=== PATIENT | male | born 1990 | race Caucasian/White ===

== ENCOUNTER 2016-11-04 08:32 | Emergency (ER) | payer OTHER ==
[2016-11-04 08:42] VITALS: BP 134/61; PULSE 68; TEMP 97.8; BMI 32.9
[2016-11-04] MEDS ORDERED: ALBUTEROL SO4 2.5/IPRATROPIUM 0.5 INH SOL 3 ML VIAL.NEB. NEB ONE ×2 (09:35→09:38)
[2016-11-04] MEDS ORDERED: predniSONE 20 MG TABLET (UD) PO ONE (09:35)
[2016-11-04] MEDS ORDERED: predniSONE 20 MG TABLET (UD) ONE (09:38)
--- NOTE | 2016-11-04 09:46 | PDOC ---
History of Present Illness - General Chief Complaint: Rash Stated Complaint: COLD, HEADACHES, DIZZINESS Time Seen by Provider: 11/04/16 09:20 History Source: Patient Exam Limitations: No Limitations - History of Present Illness Initial Comments: 11/04/16 09:38 26 yr male history of asthma c/o exposure to dust mites yesterday was cleaning his house. Pt has had congestion, sneezing, wheezing and a rash to his arms. No SOB, c/o scratchy throat. no fever or chill. Pt took singulair last night. Past History - Past Medical History Allergies/Adverse Reactions: Allergies Allergy/AdvReac Type Severity Reaction Status Date / Time zhang flavor Allergy Verified 11/04/16 08:42 hazelnut Allergy Verified 11/04/16 08:42 cats Allergy Uncoded 11/04/16 08:42 dust Allergy Uncoded 11/04/16 08:42 Home Medications: Ambulatory Orders Albuterol Sulfate Inhaler - [Ventolin HFA Inhaler -] 1 - 2 inh PO Q4H #1 inhaler 11/04/16 Cetirizine HCl [Zyrtec -] 10 mg PO DAILY #30 tablet 11/04/16 Montelukast Sodium [Singulair] 4 mg PO ASDIR 11/04/16 Phentermine HCl [Adipex-P] 37.5 mg PO ASDIR 11/04/16 Prednisone [Deltasone -] 20 mg PO DAILY #5 tablet 11/04/16 Asthma: Yes - Surgical History Appendectomy: Yes - Immunization History Immunization Up to Date: Yes - Psycho/Social/Smoking Cessation Hx Anxiety: No Suicidal Ideation: No Smoking Status: No Smoking History: Never smoked Have you smoked in the past 12 months: No Number of Cigarettes Smoked Daily: 1 Information on smoking cessation initiated: No Hx Alcohol Use: Yes (OCCASIONALLY) Drug/Substance Use Hx: No Substance Use Type: None Respiratory Specific PMHX - Complaint Specific PMHX Angina: No Bronchitis: No Pneumonia: No Pulmonary Embolus: No TB (Tuberculosis): No *Physical Exam - Vital Signs Last Vital Signs Temp Pulse Resp BP Pulse Ox 97.8 F 68 18 134/61 98 11/04/16 08:39 11/04/16 08:39 11/04/16 08:39 11/04/16 08:39 11/04/16 08:39 - Physical Exam General Appearance: Yes: Nourished, Appropriately Dressed HEENT: positive: EOMI, АНДРЕЙ, Normal ENT Inspection, TMs Normal, Pharyngeal Erythema, Nasal Congestion. negative: Scleral Icterus (L), Muffled/Hoarse voice , Tonsillar Exudate, Tonsillar Erythema Neck: positive: Supple. negative: Tender, Lymphadenopathy (R), Lymphadenopathy (L) Respiratory/Chest: positive: Lungs Clear, Wheezing (mild exp ) Cardiovascular: positive: Regular Rhythm, Regular Rate Gastrointestinal/Abdominal: positive: Normal Bowel Sounds, Soft Musculoskeletal: positive: Normal Inspection Extremity: positive: Normal Capillary Refill, Normal Inspection, Normal Range of Motion Integumentary: positive: Normal Color, Dry, Warm, Rash (bilateral upper extremities with fine maculopapular rash non erythematous) Neurologic: positive: Fully Oriented, Alert, Normal Mood/Affect, Normal Response , Motor Strength 5/5 Medical Decision Making - Medical Decision Making 11/04/16 09:49 cc: allergic reaction, asthma exacerbation will give duoneb predniosne follow up wtih PMD pt agrees with plan of care, pt is stable speaking clearly full sentences no distress vitals stable *DC/Admit/Observation/Transfer Diagnosis at time of Disposition: Asthma exacerbation Allergic reaction Qualifiers: Encounter type: initial encounter Qualified Code(s): T78.40XA - Allergy, unspecified, initial encounter - Prescriptions Prescriptions: Prednisone [Deltasone -] 20 mg PO DAILY #5 tablet Albuterol Sulfate Inhaler - [Ventolin HFA Inhaler -] 1 - 2 inh PO Q4H #1 inhaler Cetirizine HCl [Zyrtec -] 10 mg PO DAILY #30 tablet - Referrals Referrals: Malick Zaman MD [Primary Care Provider] - - Patient Instructions Additional Instructions: cool water to bathe take next dose or prednisone tomorrow morning continue taking singulair take zyrtec in the morning use your inhlaer as directed return to ER for any worsening symptoms follow with your doctor this week for follow up - Post Discharge Activity Work/School Note: Back to Work
== END 2016-11-04 10:31 | disposition home or self-care (01) ==
LOC: JERFT 08:32
PROC: 3E0F7GC Introduction of Other Therapeutic Substance into Respiratory Tract, Via Natural or Artificial Opening (ICD-10-PCS; principal; 2016-11-04)
DX: J45.901 Unspecified asthma with (acute) exacerbation (principal)
CPT/HCPCS: 99281-25

== ENCOUNTER 2017-01-30 00:58 | Emergency (ER) | payer OTHER ==
[2017-01-30 02:19] VITALS: BP 158/84; PULSE 63; TEMP 99.2; BMI 33.0
--- NOTE | 2017-01-30 03:48 | PDOC ---
History of Present Illness - General Chief Complaint: Nausea/Vomiting Stated Complaint: HEAD ACHES/FEVER Time Seen by Provider: 01/30/17 02:10 History Source: Patient Exam Limitations: No Limitations - History of Present Illness Initial Comments: 01/30/17 03:43 26yo Male patient presents to ED c/o h/a, dizziness, nausea, subjective fever, nasal congestion (yellow/greenish discharge) and "stomachache." Patient states symptoms began Saturday. He states he usually has these symptoms and they go away , but now symptoms getting worse. Patient report he ate this morning w/o nausea or vomiting. Denies any other complaints at this time. Timing/Duration: reports: week Severity: reports: moderate Episode Description: See HPI Possible Cause: Yes: occasional episodes Modifying Factors: worse with: activity, albuterol inhaler, albuterol nebulizer , antibiotics, coughing, lying down, oxygen, rest, other Associated Symptoms: reports: cough, dizziness, facial pain, lightheadedness, nasal congestion, sinus infection Aspirin Received prior to arrival: No: no aspirin today, unknown, 81 mg x 1, 81 mg x 2, 81 mg x 3, 81 mg x 4, 325 mg x 1, provided at home, provided by EMS, provided by ED ASA Contraindications(Core Measure): No: Allergy, Other, Active Blding w/i 24 hrs., Plavix, Receiving Warfarin Past History - Travel Traveled outside of the country in the last 30 days: No Close contact w/someone who was outside of country & ill: No - Past Medical History Allergies/Adverse Reactions: Allergies Allergy/AdvReac Type Severity Reaction Status Date / Time zhang flavor Allergy Verified 01/30/17 02:20 hazelnut Allergy Verified 01/30/17 02:20 cats Allergy Uncoded 01/30/17 02:20 dust Allergy Uncoded 01/30/17 02:20 Home Medications: Ambulatory Orders Amox-Tr/K Cl [Augmentin - 875Mg Tablet] 1 tab PO Q12H #20 tablet 01/30/17 Fluticasone Propionate [Flonase Allergy Relief] 1 spray NS DAILY #1 spray.susp MDD 1 spray each nare 01/30/17 Asthma: Yes - Surgical History Appendectomy: Yes - Immunization History Immunization Up to Date: Yes - Psycho/Social/Smoking Cessation Hx Anxiety: No Suicidal Ideation: No Smoking Status: No Smoking History: Never smoked Have you smoked in the past 12 months: No Number of Cigarettes Smoked Daily: 1 Information on smoking cessation initiated: No Hx Alcohol Use: No Drug/Substance Use Hx: No Substance Use Type: None Respiratory Specific PMHX - Complaint Specific PMHX Angina: No Bronchitis: No Pneumonia: No Pulmonary Embolus: No TB (Tuberculosis): No Review of Systems - Review of Systems Able to Perform ROS?: Yes Is the patient limited Panamanian proficient: No Constitutional: Yes: Chills, Fever (Subjective). No: Loss of Appetite, Malaise , Night Sweats, Weakness HEENTM: Yes: Nose Congestion. No: Nose Bleeding, Throat Pain, Throat Swelling, Mouth Pain, Difficulty Swallowing, Mouth Swelling Respiratory: No: Cough, Shortness of Breath, Stridor, Wheezing Cardiac (ROS): No: Chest Pain, Edema, Palpitations, Syncope, Chest Tightness ABD/GI: Yes: Nausea. No: Constipated, Diarrhea, Poor Appetite, Poor Fluid Intake, Vomiting, Abdominal cramping : No: Dysuria, Flank Pain, Hematuria Musculoskeletal: No: Back Pain Integumentary: No: Bruising, Erythema, Rash, Sweating Neurological: Yes: Headache, Dizziness. No: Seizure, Tremors, Weakness, Ataxia All Other Systems: Reviewed and Negative *Physical Exam - Vital Signs Last Vital Signs Temp Pulse Resp BP Pulse Ox 99.2 F 63 18 158/84 100 01/30/17 02:05 01/30/17 02:05 01/30/17 02:05 01/30/17 02:05 01/30/17 02:05 - Physical Exam General Appearance: Yes: Nourished, Appropriately Dressed, Mild Distress. No: Apparent Distress, Moderate Distress, Severe Distress HEENT: positive: EOMI, АНДРЕЙ, Normal Voice, Symmetrical, TMs Normal, Pharynx Normal, Nasal Congestion, Sinus Tenderness (Nasal turbinate swollen and inflammed. Bilateral partial obstruction of nasal cavities.). negative: Normal ENT Inspection, Pharyngeal Erythema, Tonsillar Exudate, Tonsillar Erythema, Rhinorrhea, TM Bulging, TM Dull, TM Erythema Neck: positive: Trachea midline, Normal Thyroid, Supple. negative: Lymphadenopathy (R), Lymphadenopathy (L) Respiratory/Chest: positive: Lungs Clear, Normal Breath Sounds. negative: Respiratory Distress, Accessory Muscle Use, Labored Respiration, Rapid RR, Stridor, Wheezing Cardiovascular: positive: Regular Rhythm, Regular Rate Gastrointestinal/Abdominal: positive: Normal Bowel Sounds, Soft. negative: Distended, Guarding, Rebound, Tenderness Musculoskeletal: positive: Normal Inspection. negative: CVA Tenderness Extremity: positive: Normal Capillary Refill, Normal Inspection, Normal Range of Motion. negative: Pedal Edema, Swelling, Calf Tenderness, Erythema, Inflammation Integumentary: positive: Normal Color, Dry, Warm. negative: Erythema, Hives, Swelling Neurologic: positive: steward/stewardess deck II-XII NML intact, Fully Oriented, Alert, Normal Mood/ Affect, Normal Response, Motor Strength 01/11 ED Treatment Course - RADIOLOGY Radiology Studies Ordered: Category Date Time Status SINUS CT W/O CONTRAST [CT] Stat CT Scan 01/30/17 02:20 Taken *DC/Admit/Observation/Transfer Diagnosis at time of Disposition: Sinusitis Qualifiers: Sinusitis location: unspecified location Chronicity: acute Recurrence: non- recurrent Qualified Code(s): J01.90 - Acute sinusitis, unspecified - Discharge Dispostion Disposition: HOME Condition at time of disposition: Unchanged/Unknown Admit: No - Prescriptions Prescriptions: Amox-Tr/K Cl [Augmentin - 875Mg Tablet] 1 tab PO Q12H #20 tablet Fluticasone Propionate [Flonase Allergy Relief] 1 spray NS DAILY #1 spray.susp MDD 1 spray each nare - Referrals Referrals: Nas Guerra MD [Staff Physician] - - Patient Instructions Printed Discharge Instructions: DI for Sinusitis Additional Instructions: FOLLOW UP WITH DR. GUERRA (EARS, NOSE & THROAT) FOR FURTHER EVALUATION. CALL TO SCHEDULE APPOINTMENT. TAKE MEDICATIONS PRESCRIBED. RETURN IF SYMPTOMS WORSEN OR ANY CONCERNS FOR FURTHER EVALUATION. PLEASE TAKE ANTIBIOTICS ON FULL STOMACH AUGMENTIN CAN CAUSE UPSET STOMACH AND DIARRHEA. DRINK PLENTY FLUIDS (WATER). Print Language: CHINESE - Post Discharge Activity Work/School Note: Back to Work
[2017-01-30] MEDS ORDERED: AMOX TR/POT CLAV 875MG/125MG TABLETS (FP) PO ONE (03:53)
[2017-01-30] MEDS ORDERED: PSEUDOEPHEDRINE HCL 60 MG TABLET PO ONE (03:54)
[2017-01-30] MEDS ORDERED: PSEUDOEPHEDRINE HCL 60 MG TABLET ONE (04:25)
[2017-01-30] MEDS ORDERED: AMOX TR/POT CLAV 875MG/125MG TABLETS (FP) ONE (04:25)
[2017-01-30] MEDS ORDERED: ACETAMINOPHEN 650 MG/20.3 ML ORAL SOLUTION (CUPS) PO ONE (04:40)
[2017-01-30] MEDS ORDERED: ACETAMINOPHEN 325 MG TABLET (FP) ONE (04:41)
--- NOTE | 2017-01-30 05:25 | PDOC ---
*Physical Exam - Vital Signs Last Vital Signs Temp Pulse Resp BP Pulse Ox 99.2 F 63 18 158/84 100 01/30/17 02:05 01/30/17 02:05 01/30/17 02:05 01/30/17 02:05 01/30/17 02:05 ED Treatment Course - Medications Given in the ED: ED Medications Discontinued Medications Generic Name Dose Route Start Last Admin Trade Name Bola PRN Reason Stop Dose Admin Acetaminophen 975 mg 01/30/17 04:40 01/30/17 04:41 Tylenol Oral Solution - PO 01/30/17 04:41 975 mg ONCE ONE Administration Amoxicillin/Clavulanate Potassium 1 tab 01/30/17 03:53 01/30/17 04:28 Augmentin - 875mg Tablet PO 01/30/17 03:54 1 tab ONCE ONE Administration Pseudoephedrine HCl 60 mg 01/30/17 03:54 01/30/17 04:28 Sudafed - PO 01/30/17 03:55 60 mg ONCE ONE Administration Medical Decision Making - Medical Decision Making 01/30/17 05:24 agree with care from FELIPE Ny *DC/Admit/Observation/Transfer Diagnosis at time of Disposition: Sinusitis Qualifiers: Sinusitis location: unspecified location Chronicity: acute Recurrence: non- recurrent Qualified Code(s): J01.90 - Acute sinusitis, unspecified - Discharge Dispostion Disposition: HOME Condition at time of disposition: Good - Prescriptions Prescriptions: Amox-Tr/K Cl [Augmentin - 875Mg Tablet] 1 tab PO Q12H #20 tablet Azelastine/Fluticasone [Dymista Nasal [place]] 1 spray NS BID #1 spray.pump Fluticasone Propionate [Flonase Allergy Relief] 1 spray NS DAILY #1 spray.susp MDD 1 spray each nare - Referrals Referrals: Nas Guerra MD [Staff Physician] - - Patient Instructions Printed Discharge Instructions: DI for Sinusitis Additional Instructions: FOLLOW UP WITH DR. GUERRA (EARS, NOSE & THROAT) FOR FURTHER EVALUATION. CALL TO SCHEDULE APPOINTMENT. TAKE MEDICATIONS PRESCRIBED. RETURN IF SYMPTOMS WORSEN OR ANY CONCERNS FOR FURTHER EVALUATION. PLEASE TAKE ANTIBIOTICS ON FULL STOMACH AUGMENTIN CAN CAUSE UPSET STOMACH AND DIARRHEA. DRINK PLENTY FLUIDS (WATER). Print Language: LATVIAN - Post Discharge Activity Work/School Note: Back to Work
== END 2017-01-30 05:15 | disposition home or self-care (01) ==
LOC: JER 00:58
DX: J01.90 Acute sinusitis, unspecified (principal)
CPT/HCPCS: 70486-TC; 99282-25

== ENCOUNTER 2017-08-31 16:10 | Emergency (ER) | payer OTHER ==
[2017-08-31 16:18] VITALS: BP 107/76; PULSE 82; TEMP 98; BMI 33.5
[2017-08-31] MEDS ORDERED: MECLIZINE HCL 25 MG TABLET (FP) PO ONE (17:05)
--- NOTE | 2017-08-31 17:05 | PDOC ---
History of Present Illness - General History Source: Patient, Old Records Exam Limitations: No Limitations - History of Present Illness Initial Comments: 08/31/17 17:30 The patient is a 27 year old male, with a significant past medical history of anxiety and asthma, who presents to the emergency department with intermittent lightheadedness for the past 10 days. The patient reports that the lightheadedness is associated with a change in position, such as sitting up or standing up quickly. He reports that episodes of lightheadedness last a couple of minutes before resolving spontaneously. The patient reports that he sometimes feels like he is going to pass out when these episodes occur. The patient also reports an intermittent headache for the past 10 days which he describes as throbbing, rating it an 8/10 in severity. The patient additionally reports some occasional bilateral arm numbness and intermittent nausea. The patient denies blurry vision, double vision or changes in vision. The patient denies palpitations, shortness of breath or chest pain. The patient denies vomiting, diarrhea or abdominal pain. Allergies: [place] Flavor, Hazelnut, Cats, Dust. Past Surgical History: Appendectomy. Social History: Non-smoker. Denies alcohol or drug use. <Nadia Amador - Last Filed: 08/31/17 19:29> <Matt Rodriguez - Last Filed: 08/31/17 20:02> - General Chief Complaint: Weakness Stated Complaint: FATIGUE, CHILLS, BODY ACHES,INTERMITTENT NUMBNESS Time Seen by Provider: 08/31/17 17:04 Past History <Nadia Amador - Last Filed: 08/31/17 19:29> - Past Medical History Asthma: Yes COPD: No Lung CA: Yes (anxiety) Other medical history: On Phentermine for WT loss - Surgical History Appendectomy: Yes - Immunization History Immunization Up to Date: Yes - Suicide/Smoking/Psychosocial Hx Smoking Status: No Smoking History: Never smoked Have you smoked in the past 12 months: No Number of Cigarettes Smoked Daily: 1 Information on smoking cessation initiated: Yes 'Breaking Loose' booklet given: 08/31/17 Hx Alcohol Use: Yes (occasional) Drug/Substance Use Hx: No Substance Use Type: None <Matt Rodriguez - Last Filed: 08/31/17 20:02> - Past Medical History Allergies/Adverse Reactions: Allergies Allergy/AdvReac Type Severity Reaction Status Date / Time beckford flavor Allergy Verified 08/31/17 16:18 hazelnut Allergy Verified 08/31/17 16:18 cats Allergy Uncoded 08/31/17 16:18 dust Allergy Uncoded 08/31/17 16:18 Home Medications: Ambulatory Orders Cetirizine HCl [Zyrtec -] 10 mg PO DAILY 08/31/17 Meclizine HCl 25 mg PO TID 5 Days #15 tablet 08/31/17 Montelukast Sodium [Singulair] 10 mg PO DAILY 08/31/17 Review of Systems - Review of Systems Able to Perform ROS?: Yes Comments:: 08/31/17 17:31 A complete review of 10 out of 10 review of systems is taken and is negative apart from what is previously mentioned below and in the HPI. <Nadia Amador - Last Filed: 08/31/17 19:29> *Physical Exam - Vital Signs Last Vital Signs Temp Pulse Resp BP Pulse Ox 98 F 82 18 107/76 100 08/31/17 16:15 08/31/17 16:15 08/31/17 16:15 08/31/17 16:15 08/31/17 16:15 - Physical Exam Comments: 08/31/17 17:34 Vitals: Triage Vital signs reviewed. General Appearance: No acute distress, well nourished, well developed. Head: Atraumatic, normocephalic. Eyes: Pupils equal reactive round, extraocular movement intact. Neck: Supple. No nuchal rigidity. Chest Wall: Nontender. Cardiac: Regular rate and rhythm. No murmurs, no rubs, no gallops. Lungs: Clear to auscultation bilaterally, good air movement bilaterally. Abdomen: Soft, nondistended, normal bowel sounds, nontender to palpation. Extremities: Full range of motion to all extremities, no cyanosis, clubbing, or edema. Skin: Warm and dry, no rashes or lesions, no petechiae. Neuro: Patient reports feeling lightheaded upon sitting up and standing. AOX3. Cranial Nerves 2-12 grossly intact. Strength intact to all extremities. Sensation intact to all extremities. Finger to nose intact bilaterally. Psych: Normal mood, normal affect. <Nadia Amador - Last Filed: 08/31/17 19:29> - Vital Signs Last Vital Signs Temp Pulse Resp BP Pulse Ox 98 F 82 18 107/76 100 08/31/17 16:15 08/31/17 16:15 08/31/17 16:15 08/31/17 16:15 08/31/17 16:15 <Matt Rodriguez - Last Filed: 08/31/17 20:02> Heart Score/ECG Review #1 ECG reviewed & interpreted by me at: 17:47 (EKG performed at 17:47 demonstrates rate of 64 bpm, normal sinus rhythm, normal axis. No T wave inversions, no ST elevations.) <Nadia Amador - Last Filed: 08/31/17 19:29> ED Treatment Course - LABORATORY CBC & Chemistry Diagram: 08/31/17 17:40 08/31/17 18:48 <Nadia Amador - Last Filed: 08/31/17 19:29> - LABORATORY CBC & Chemistry Diagram: 08/31/17 17:40 08/31/17 18:48 <Matt Rodriguez - Last Filed: 08/31/17 20:02> Medical Decision Making - Medical Decision Making 08/31/17 19:30 EXAM: CT/HEAD CT without contrast Reviewed By: Dr. Vy Parsons Report: There is no CT evidence of acute cortical territorial infarction, bleed , mass lesion, mass effect, hydrocephalus or abnormal extra axial collection. Mild bilateral ethmoid chronic sinusitis. No acute sinusitis or mastoiditis is identified. No acute skull fracture or calvarial lesion is noted. <Nadia Amador - Last Filed: 08/31/17 19:29> - Medical Decision Making 08/31/17 19:21 Well-appearing no apparent distress normal neurologic examination history examination consistent with positional lightheadedness status post IV fluids meclizine patient feels better labs within normal limits Discharge home with prescription for meclizine. He'll follow up with neurology this week. Findings, the need for follow-up and strict return instructions discussed with patient. <Matt Rodriguez - Last Filed: 08/31/17 20:02> *DC/Admit/Observation/Transfer - Attestations Scribe Attestion: 08/31/17 17:15 Documentation prepared by Nadia Amador, acting as medical dermatologist for Matt Rodriguez MD. <Nadia Amador - Last Filed: 08/31/17 19:29> - Discharge Dispostion Admit: No <Matt Rodriguez - Last Filed: 08/31/17 20:02> Diagnosis at time of Disposition: Lightheadedness - Prescriptions Prescriptions: Meclizine HCl 25 mg PO TID 5 Days #15 tablet - Referrals Referrals: Pepe Cartagena [Primary Care Provider] - Pancho Pradhan MD [Staff Physician] - - Patient Instructions Additional Instructions: Drink plenty fluids. Meclizine as prescribed. On Saturday if no improvement in symptoms follow-up with Dr. Pradhan neurology. Return to the ED for any severe worsening symptoms or for any concerns. - Post Discharge Activity Forms/Work/School Notes: Back to Work
[2017-08-31] MEDS ORDERED: SODIUM CHLORIDE 0.9% 1000 ML INFUS.BAG IV ONE (17:07)
[2017-08-31] MEDS ORDERED: MECLIZINE HCL 25 MG TABLET (FP) ONE (17:16)
[2017-08-31 17:47] LABS: BASO % 0.6 % (0-2.0); EOS # 0.4 # (0-4.5); EOS % 4.2 % (0-4.5); LYMPH # 1.9 (8-40); MCH 29.6 pg (25.7-33.7); MCHC 32.7 g/dl (32.0-35.9); MEAN CELL VOLUME 90.6 fl (80-96); MEAN PLT VOLUME 10.1 fl (7.5-11.1); MONO # 0.9 # (3.8-10.2); NEUT # 5.2 # (42.8-82.8); NEUT % 62.3 % (42.8-82.8); PLATELET COUNT 237 K/MM3 (134-434); RDW 13.8 % (11.9-15.9); WHITE BLOOD COUNT 8.4 K/mm3 (4.0-10.0)
[2017-08-31 19:17] LABS: ALBUMIN 3.5 g/dl (3.4-5.0); ANION GAP 8 (8-16); BILIRUBIN,TOTAL 0.9 mg/dL (0.2-1.0); CALCIUM 7.9 mg/dL (8.5-10.1); CO2 25 mmol/L (21-32); CREATININE 0.7 mg/dL (0.7-1.3); GLUCOSE,RANDOM 85 mg/dL (74-106); SGOT/AST 11 U/L (15-37); SGPT/ALT 28 U/L (12-78); TOT PROT 6.5 g/dl (6.4-8.2)
[2017-08-31 19:18] LABS: ALK PHOS 89 U/L (45-117)
--- NOTE | 2017-09-01 17:09 | EKG ---
Test Reason : Blood Pressure : / mmHG Vent. Rate : 064 BPM Atrial Rate : 064 BPM P-R Int : 128 ms QRS Dur : 088 ms QT Int : 414 ms P-R-T Axes : 027 040 026 degrees QTc Int : 427 ms NORMAL SINUS RHYTHM NORMAL ECG NO PREVIOUS ECGS AVAILABLE Confirmed by ABDELRAHMAN JIMENEZ MD ([id number]) on 09/01/2017 5:09:18 PM Referred By: Confirmed By:ABDELRAHMAN JIMENEZ MD
== END 2017-08-31 20:56 | disposition home or self-care (01) ==
LOC: JER 16:10
DX: R42 Dizziness and giddiness (principal)
CPT/HCPCS: 36415; 70450-TC; 80053; 85025; 93005; 93010; 99284-25

== ENCOUNTER 2017-11-06 06:01 | Emergency (ER) | payer OTHER ==
[2017-11-06 06:22] VITALS: BP 156/80; PULSE 90; TEMP 99.4; BMI 34.7
--- NOTE | 2017-11-06 07:28 | PDOC ---
History of Present Illness - General History Source: Patient Exam Limitations: No Limitations - History of Present Illness Initial Comments: 11/06/17 07:49 The patient is a 27 year old male with no significant past medical history who presents to the ED complaining of approximately 1 week of subjective fever, malaise, sore throat, and cough with chest congestion. He states he has been taking old Augmentin since 4 days ago. He now also complains of diffuse lower abdominal pain and diarrhea. No vomiting. States his sore throat became worse this morning, prompting him to come to the ED. <Mindy Nicole - Last Filed: 11/06/17 07:49> <Frank Mead - Last Filed: 11/06/17 08:14> - General Chief Complaint: Sore Throat Stated Complaint: SORE THROAT Time Seen by Provider: 11/06/17 07:26 Past History <Mindy Nicole - Last Filed: 11/06/17 07:49> - Past Medical History Asthma: Yes COPD: No Lung CA: Yes (anxiety) - Surgical History Appendectomy: Yes - Immunization History Immunization Up to Date: Yes - Suicide/Smoking/Psychosocial Hx Smoking Status: No Smoking History: Never smoked Have you smoked in the past 12 months: No Number of Cigarettes Smoked Daily: 1 Information on smoking cessation initiated: No 'Breaking Loose' booklet given: 08/31/17 Hx Alcohol Use: No Drug/Substance Use Hx: No Substance Use Type: None <Frank Mead - Last Filed: 11/06/17 08:14> - Past Medical History Allergies/Adverse Reactions: Allergies Allergy/AdvReac Type Severity Reaction Status Date / Time zhang flavor Allergy Verified 11/06/17 06:10 hazelnut Allergy Verified 11/06/17 06:10 cats Allergy Uncoded 11/06/17 06:10 dust Allergy Uncoded 11/06/17 06:10 Home Medications: Ambulatory Orders Cetirizine HCl [Zyrtec -] 10 mg PO DAILY 08/31/17 Meclizine HCl 25 mg PO TID 5 Days #15 tablet 08/31/17 Montelukast Sodium [Singulair] 10 mg PO DAILY 08/31/17 Review of Systems - Review of Systems Able to Perform ROS?: Yes Comments:: 11/06/17 07:52 CONSTITUTIONAL: +Subjective fever, malaise. EYES: No visual changes ENT: +Sore throat. No ear pain. CARDIOVASCULAR: No chest pain, no palpitations RESPIRATORY: +Chest congestion, cough. GI: +Diffuse lower abdominal pain, diarrhea. No vomiting. No constipation. GENITOURINARY: No dysuria, no frequency, no hematuria MUSCULOSKELETAL: No backpain, no joint pain. SKIN: No rash NEURO: No headache <Mindy Nicole - Last Filed: 11/06/17 07:49> *Physical Exam - Vital Signs Last Vital Signs Temp Pulse Resp BP Pulse Ox 99.4 F 90 20 156/80 98 11/06/17 06:10 11/06/17 06:10 11/06/17 06:10 11/06/17 06:10 11/06/17 06:10 - Physical Exam Comments: 11/06/17 07:54 CONSTITUTIONAL: Well-appearing; well-nourished; in no apparent distress HEAD: Normocephalic; atraumatic EYES: PERRL; EOM intact ENMT: External appears normal; mildly erythematous oropharynx NECK: Supple; non-tender; mildly enlarged anterior cervical lymphadenopathy CARD: Normal S1, S2; no murmurs, rubs, or gallops RESP: Normal chest excursion with respiration; breath sounds clear and equal bilaterally; no wheezes, rhonchi, or rales ABD: Soft, non-distended; non-tender; no palpable organomegaly, no palpable hernias EXT: Normal ROM in all four extremities; non-tender to palpation; distal pulses intact SKIN: Warm, dry, no rash NEURO: No focal neurological deficiencies. <Mindy Nicole - Last Filed: 11/06/17 07:49> - Vital Signs Last Vital Signs Temp Pulse Resp BP Pulse Ox 99.4 F 90 20 156/80 98 11/06/17 06:10 11/06/17 06:10 11/06/17 06:10 11/06/17 06:10 11/06/17 06:10 <Frank Mead - Last Filed: 11/06/17 08:14> ED Treatment Course - Medications Given in the ED: ED Medications Discontinued Medications Generic Name Dose Route Start Last Admin Trade Name Freq PRN Reason Stop Dose Admin Ibuprofen 600 mg 11/06/17 07:36 11/06/17 07:43 Motrin - PO 11/06/17 07:37 600 mg ONCE ONE Administration <Mindy Nicole - Last Filed: 11/06/17 07:49> Medical Decision Making - Medical Decision Making 11/06/17 07:43 Patient is well-appearing 27-year-old male who presents to the ER with signs of mild pharyngitis with associated abdominal pain and diarrhea after self initiated Augmentin therapy. Augmentin was prescribed for sinus infection earlier. In the ER, patient is awake and alert, well-appearing, afebrile, without signs or symptoms of upper respiratory compromise. Oropharynx is clear without exudate or ulceration; uvula is midline and is not edematous. There is no stridor. There is minimally enlarged cervical lymphadenopathy. Patient's voice is mildly hoarse. I do not suspect retropharyngeal abscess or epiglottitis at this time. We'll administer ibuprofen. Will discharge. <Frank Mead - Last Filed: 11/06/17 08:14> *DC/Admit/Observation/Transfer - Attestations Scribe Attestion: 11/06/17 07:56 Documentation prepared by Mindy Nicole, acting as coroner/medical examiner for Frank Mead MD. <Mindy Nicole - Last Filed: 11/06/17 07:49> <Frank Mead - Last Filed: 11/06/17 08:14> Diagnosis at time of Disposition: Sore throat Diarrhea Qualifiers: Diarrhea type: unspecified type Qualified Code(s): R19.7 - Diarrhea, unspecified - Discharge Dispostion Disposition: HOME Condition at time of disposition: Stable - Referrals Referrals: Pepe Cartagena [Primary Care Provider] - - Patient Instructions Printed Discharge Instructions: Diarrhea, DI for Pharyngitis/ Tonsillopharyngitis -- Adult Additional Instructions: Your abdominal pain and diarrhea are likely related to Augmentin therapy. Your symptoms are consistent with viral sore throat. Take NSAIDs as needed for pain, well-hydrated and follow-up with your primary care physician. - Post Discharge Activity Forms/Work/School Notes: Back to Work
[2017-11-06] MEDS ORDERED: IBUPROFEN 600 MG TABLET (FP) PO ONE ×2 (07:36→07:41)
== END 2017-11-06 08:19 | disposition home or self-care (01) ==
LOC: JER 06:01
DX: R19.7 Diarrhea, unspecified (principal)
CPT/HCPCS: 99282-25

== ENCOUNTER 2018-11-16 17:34 | Inpatient (IN) | payer BC, OTHER ==
[2018-11-16] MEDS ORDERED: ACETAMINOPHEN 1000 MG/100 ML VIAL (NON FORMULARY) IVPB ONE (18:25)
[2018-11-16] MEDS ORDERED: SODIUM CHLORIDE 1,000 ML IV STA (18:25)
--- NOTE | 2018-11-16 18:36 | PDOC ---
History of Present Illness - General Chief Complaint: Pain Stated Complaint: FEVER, ABDOMINAL PAIN Time Seen by Provider: 11/16/18 18:22 History Source: Patient Exam Limitations: No Limitations - History of Present Illness Travel History: No Initial Comments: 11/16/18 18:32 28 y/o male with lower abd pain x 3 days accompanies with intermittent constipation now with yellowish stool. Pt now also states fever and mild burning w/ urination this am. Pt denies recent travel, recent illness, or nausea /vomiting. 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 Timing/Duration: reports: getting worse Quality: reports: moderate, cramping Abdominal Pain Onset Location: reports: LLQ Pain Radiation: reports: no radiation, groin Aggravating Factors: improves with: None Alleviating Factors: improves with: None Past History - Travel Traveled outside of the country in the last 30 days: No Close contact w/someone who was outside of country & ill: No - Past Medical History Allergies/Adverse Reactions: Allergies Allergy/AdvReac Type Severity Reaction Status Date / Time zhang flavor Allergy Verified 11/16/18 17:52 hazelnut Allergy Verified 11/16/18 17:52 cats Allergy Uncoded 11/16/18 17:52 dust Allergy Uncoded 11/16/18 17:52 Home Medications: Ambulatory Orders Cetirizine HCl [Zyrtec -] 10 mg PO DAILY 08/31/17 Montelukast Sodium [Singulair] 50 mg PO DAILY 08/31/17 Duloxetine HCl [Cymbalta] 30 mg PO HS 11/16/18 Lactobacillus Acidophilus [Bacid -] 1 tab PO DAILY #30 tab 11/18/18 Metronidazole 500 mg PO Q8H #21 tablet 11/18/18 levoFLOXacin [Levaquin] 750 mg PO DAILY #7 tab 11/18/18 Asthma: Yes COPD: No Psychiatric Problems: Yes (anxiety) Lung CA: Yes (anxiety) - Surgical History Abdominal Surgery: Yes (09/2010 intestinal acsess) Appendectomy: Yes - Immunization History Immunization Up to Date: Yes - Suicide/Smoking/Psychosocial Hx Smoking Status: No Smoking History: Never smoked Have you smoked in the past 12 months: No Number of Cigarettes Smoked Daily: 1 'Breaking Loose' booklet given: 08/31/17 Hx Alcohol Use: No Drug/Substance Use Hx: No Substance Use Type: None Patient Lives Alone: No Abd/GI Specific PMHX - Complaint Specific PMHX Other History: intestinal abscess Review of Systems - Review of Systems Able to Perform ROS?: No Is the patient limited Nauruan proficient: No Constitutional: Yes: Fever HEENTM: Yes: Throat Pain Respiratory: No: Symptoms reported Cardiac (ROS): No: Symptoms Reported ABD/GI: Yes: Constipated, Diarrhea, Abdominal cramping : Yes: Burning. No: Dysuria, Frequency, Flank Pain Musculoskeletal: No: Symptoms Reported Integumentary: No: Symptoms Reported Neurological: No: Symptoms reported Endocrine: No: Symptoms Reported *Physical Exam - Vital Signs Last Vital Signs Temp Pulse Resp BP Pulse Ox 101.5 F H 113 H 20 137/83 99 11/16/18 17:48 11/16/18 17:48 11/16/18 17:48 11/16/18 17:48 11/16/18 17:48 - Physical Exam General Appearance: Yes: Nourished, Appropriately Dressed. No: Apparent Distress HEENT: positive: EOMI, АНДРЕЙ, TMs Normal, Pharyngeal Erythema (mild to left 2 + tonsillar region). negative: Tonsillar Exudate Neck: positive: Supple. negative: Lymphadenopathy (R), Lymphadenopathy (L) Respiratory/Chest: positive: Lungs Clear, Normal Breath Sounds. negative: Accessory Muscle Use Cardiovascular: positive: Regular Rhythm, Tachycardia. negative: Murmur Gastrointestinal/Abdominal: positive: Soft, Tenderness (llq and left flank) Musculoskeletal: negative: CVA Tenderness Extremity: positive: Normal Inspection Integumentary: positive: Normal Color, Warm, Moist Neurologic: positive: Motor Strength 5/5 (ambulatory) Moderate Sedation - Procedure Monitoring Vital Signs: Procedure Monitoring Vital Signs Temperature 101.5 F H 11/16/18 17:48 Pulse Rate 113 H 11/16/18 17:48 Respiratory Rate 20 11/16/18 17:48 Blood Pressure 137/83 11/16/18 17:48 O2 Sat by Pulse Oximetry (%) 99 11/16/18 17:48 ED Treatment Course - LABORATORY CBC & Chemistry Diagram: 11/18/18 07:30 11/18/18 07:30 - RADIOLOGY Radiology Studies Ordered: Category Date Time Status ABDOMEN & PELVIS CT WITH CONTR [CT] Stat CT Scan 11/16/18 18:22 Ordered Medical Decision Making - Medical Decision Making 11/16/18 18:39 CC: llq pain with bowel changes over the last 3 days. Now with fever, throat pain, and burning this am w/ urination( denies presently), Hx intestinal abscess and appendectomy Exam: LLQ/left flank tenderness, febrile Plan: labs, urine, ivf, iv tylenol, abd ct w/ contrast *DC/Admit/Observation/Transfer Diagnosis at time of Disposition: Abdominal pain, Acute diverticulitis, Fever, Bandemia - Discharge Dispostion Disposition: HOME Condition at time of disposition: Stable - Referrals - Patient Instructions - Post Discharge Activity
[2018-11-16 18:46] LABS: URINE APPEARANCE CLEAR; URINE BILIRUBIN NEGATIVE (<2.0 mg/dL); URINE COLOR LTYELLOW; URINE GLUCOSE (UA) NEGATIVE (NEGATIVE); URINE KETONE NEGATIVE (NEGATIVE); URINE LEUK ESTERASE NEGATIVE (NEGATIVE); URINE NITRITE NEGATIVE (NEGATIVE); URINE PROTEIN NEGATIVE (NEGATIVE); URINE UROBILINOGEN NEGATIVE mg/dL (0.2-1.0)
[2018-11-16] MEDS ORDERED: ACETAMINOPHEN INJECTION 100 ML IVPB ONE (18:55)
[2018-11-16 19:13] LABS: BASO % 0.3 % (0-2.0); EOS % 0.5 % (0-4.5); HEMATOCRIT 41.9 % (35.4-49); HEMOGLOBIN 14.5 GM/dL (11.7-16.9); LYMPH % 10.1 % (8-40); MCH 31.1 pg (25.7-33.7); MCHC 34.6 g/dl (32.0-35.9); MEAN CELL VOLUME 89.9 fl (80-96); MEAN PLT VOLUME 8.9 fl (7.5-11.1); MONO % 6.4 % (3.8-10.2); NEUT % 82.7 % (42.8-82.8); PLATELET COUNT 275 K/MM3 (134-434); RBC 4.66 M/mm3 (4.00-5.60); RDW 13.1 % (11.9-15.9); WHITE BLOOD COUNT 14.1 K/mm3 (4.0-10.0)
[2018-11-16 19:50] LABS: PLATELET ESTIMATE ADEQUATE
--- NOTE | 2018-11-16 20:27 | PDOC ---
*Physical Exam - Vital Signs Last Vital Signs Temp Pulse Resp BP Pulse Ox 99.1 F 109 H 20 137/67 97 11/16/18 20:15 11/16/18 20:15 11/16/18 20:15 11/16/18 20:15 11/16/18 20:15 - Physical Exam General Appearance: Yes: Appropriately Dressed Gastrointestinal/Abdominal: positive: Tender (LLQ pain), Soft Extremity: positive: Normal Capillary Refill, Normal Inspection, Normal Range of Motion Integumentary: positive: Normal Color, Dry, Warm Neurologic: positive: Fully Oriented, Alert ED Treatment Course - LABORATORY CBC & Chemistry Diagram: 11/17/18 05:20 11/17/18 05:20 - ADDITIONAL ORDERS Additional order review: Laboratory Results 11/16/18 11/16/18 11/16/18 19:00 19:00 18:30 Lactic Acid 0.8 Lipase 87 Urine Color Ltyellow Urine Appearance Clear Urine pH 7.0 Ur Specific [place] 1.013 Urine Protein Negative Urine Glucose (UA) Negative Urine Ketones Negative Urine Blood Negative Urine Nitrite Negative Urine Bilirubin Negative Urine Urobilinogen Negative Ur Leukocyte Esterase Negative 11/16/18 19:00 RBC 4.66 MCV 89.9 MCHC 34.6 RDW 13.1 MPV 8.9 D Neutrophils % 82.7 D Lymphocytes % 10.1 D Monocytes % 6.4 Eosinophils % 0.5 D Basophils % 0.3 - Medications Given in the ED: ED Medications Discontinued Medications Generic Name Dose Route Start Last Admin Trade Name Freq PRN Reason Stop Dose Admin Acetaminophen 1,000 mg 11/16/18 18:25 11/16/18 19:16 Ofirmev Injection - IVPB 11/16/18 18:26 1,000 mg ONCE ONE Administration Sodium Chloride 1,000 mls @ 1,000 mls/hr 11/16/18 18:25 11/16/18 19:16 Normal Saline - IV 11/16/18 19:24 1,000 mls/hr ASDIR STA Administration Medical Decision Making - Medical Decision Making 11/16/18 20:26 cmp ordered. pending CTAP. patient reports that last diverticulitis in 2010. never followed up with GI after that episode and has been following a diet as per patient. 11/16/18 23:12 CTAP: Clear evidence for diverticulitis at the lower descending colon/proximal sigmoid colon junction with infiltration of the surrounding adipose tissues but no evidence of diverticular abscess or perforation at this time. Right lower quadrant mesenteric adenitis with mild local fatty infiltration. The study is otherwise unremarkable 11/16/18 23:[address] hernández to discuss CT findings. will consider placing on obs due to fever with bandemia and diverticulitis/ 11/17/18 00:[address] hernández recommends admission 11/17/18 00:18 patient signed out to the Hospitalist service. *DC/Admit/Observation/Transfer Diagnosis at time of Disposition: Acute diverticulitis, Bandemia Abdominal pain Qualifiers: Abdominal location: left lower quadrant Qualified Code(s): R10.32 - Left lower quadrant pain Fever Qualifiers: Fever type: unspecified Qualified Code(s): R50.9 - Fever, unspecified - Discharge Dispostion Decision to Admit order: Yes - Referrals - Patient Instructions - Post Discharge Activity
[2018-11-16 21:06] LABS: ALBUMIN 4.1 g/dl (3.4-5.0); ALK PHOS 70 U/L (45-117); ANION GAP 9 MMOL/L (8-16); BILIRUBIN,TOTAL 0.8 mg/dL (0.2-1); BLOOD UREA NITROGEN 11 mg/dL (7-18); CALCIUM 8.4 mg/dL (8.5-10.1); CHLORIDE 103 mmol/L (98-107); CO2 24 mmol/L (21-32); CREATININE 0.8 mg/dL (0.55-1.3); GLUCOSE,RANDOM 104 mg/dL (74-106); POTASSIUM 3.6 mmol/L (3.5-5.1); SGOT/AST 20 U/L (15-37); SGPT/ALT 41 U/L (13-61); SODIUM 136 mmol/L (136-145); TOT PROT 7.7 g/dl (6.4-8.2)
[2018-11-16] MEDS ORDERED: SODIUM CHLORIDE 1,000 ML IV SCH (22:15)
[2018-11-16] MEDS ORDERED: ACETAMINOPHEN 325 MG TABLET (FP) ONE (22:34)
[2018-11-16] MEDS ORDERED: ACETAMINOPHEN 325 MG TABLET (FP) PO ONE (22:39)
[2018-11-16] MEDS ORDERED: KETOROLAC TROMETHAMINE 30 MG/1 ML VIAL IVPUSH ONE (23:12)
[2018-11-16] MEDS ORDERED: KETOROLAC TROMETHAMINE 30 MG/1 ML VIAL ONE (23:18)
[2018-11-17] MEDS ORDERED: MORPHINE SULFATE 2 MG/ML VIAL IVPUSH PRN (01:28)
[2018-11-17] MEDS ORDERED: ONDANSETRON 4 MG/2 ML VIAL IVPUSH PRN (01:33)
--- NOTE | 2018-11-17 01:36 | HP ---
CHIEF COMPLAINT: lower abd pain PCP: HISTORY OF PRESENT ILLNESS: 28 y/o male with lower abd pain x 3 days accompanies with intermittent constipation. Pt denies recent travel, recent illness, or nausea/vomiting. 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 ER course was notable for: (1)iv fluid (2)levofloxacin (3)metronidazole Recent Travel:no PAST MEDICAL HISTORY:none PAST SURGICAL HISTORY: abscess drained 8 years ago Social History: no toxic habits Smoking: Alcohol: Drugs: Family History: none Allergies zhang flavor Allergy (Verified 11/16/18 17:52) hazelnut Allergy (Verified 11/16/18 17:52) cats Allergy (Uncoded 11/16/18 17:52) dust Allergy (Uncoded 11/16/18 17:52) HOME MEDICATIONS: Home Medications Medication Instructions Recorded Cetirizine HCl [Zyrtec -] 10 mg PO DAILY 08/31/17 Montelukast Sodium [Singulair] 50 mg PO DAILY 08/31/17 Duloxetine HCl [Cymbalta] 30 mg PO HS 11/16/18 REVIEW OF SYSTEMS CONSTITUTIONAL: Absent: fever, chills, diaphoresis, generalized weakness, malaise, loss of appetite, weight change HEENT: Absent: rhinorrhea, nasal congestion, throat pain, throat swelling, difficulty swallowing, mouth swelling, ear pain, eye pain, visual changes CARDIOVASCULAR: Absent: chest pain, syncope, palpitations, irregular heart rate, lightheadedness , peripheral edema RESPIRATORY: Absent: cough, shortness of breath, dyspnea with exertion, orthopnea, wheezing, stridor, hemoptysis GASTROINTESTINAL: Absent: abdominal distension, nausea, vomiting, , melena, hematochezia present abdominal pain, constipation, GENITOURINARY: Absent: dysuria, frequency, urgency, hesitancy, hematuria, flank pain, genital pain MUSCULOSKELETAL: Absent: myalgia, arthralgia, joint swelling, back pain, neck pain SKIN: Absent: rash, itching, pallor HEMATOLOGIC/IMMUNOLOGIC: Absent: easy bleeding, easy bruising, lymphadenopathy, frequent infections ENDOCRINE: Absent: unexplained weight gain, unexplained weight loss, heat intolerance, cold intolerance NEUROLOGIC: Absent: headache, focal weakness or paresthesias, dizziness, unsteady gait, seizure, mental status changes, bladder or bowel incontinence PSYCHIATRIC: Absent: anxiety, depression, suicidal or homicidal ideation, hallucinations. PHYSICAL EXAMINATION Vital Signs - 24 hr 11/16/18 11/16/18 17:48 20:15 Temperature 101.5 F H 99.1 F Pulse Rate 113 H Pulse Rate [ 109 H Apical] Respiratory 20 20 Rate Blood Pressure 137/83 Blood Pressure 137/67 [Right Arm] O2 Sat by Pulse 99 97 Oximetry (%) GENERAL: Awake, alert, and fully oriented, in no acute distress ,obese HEAD: Normal with no signs of trauma. EYES: Pupils equal, round and reactive to light, extraocular movements intact, sclera anicteric, conjunctiva clear. No lid lag. EARS, NOSE, THROAT: Ears normal, nares patent, oropharynx clear without exudates. Moist mucous membranes. NECK: Normal range of motion, supple without lymphadenopathy, JVD, or masses. LUNGS: Breath sounds equal, clear to auscultation bilaterally. No wheezes, and no crackles. No accessory muscle use. HEART: Regular rate and rhythm, normal S1 and S2 without murmur, rub or gallop. ABDOMEN: Soft, tender in LLQ not distended, decreased bowel sounds, +guarding, no rebound, no masses. No hepatomegaly or splenomegaly. MUSCULOSKELETAL: Normal range of motion at all joints. No bony deformities or tenderness. No CVA tenderness. UPPER EXTREMITIES: 2+ pulses, warm, well-perfused. No cyanosis. No clubbing. No peripheral edema. LOWER EXTREMITIES: 2+ pulses, warm, well-perfused. No calf tenderness. No peripheral edema. NEUROLOGICAL: Cranial nerves II-XII intact. Normal speech. Normal gait. PSYCHIATRIC: Cooperative. Good eye contact. Appropriate mood and affect. SKIN: Warm, dry, normal turgor, no rashes or lesions noted, normal capillary refill. Laboratory Results - last 24 hr 11/16/18 11/16/18 11/16/18 18:30 18:30 18:30 WBC RBC Hgb Hct MCV MCH MCHC RDW Plt Count MPV Absolute Neuts (auto) Neutrophils % Neutrophils % (Manual) Band Neutrophils % Lymphocytes % Lymphocytes % (Manual) Monocytes % Monocytes % (Manual) Eosinophils % Eosinophils % (Manual) Basophils % Basophils % (Manual) Nucleated RBC % Platelet Estimate Sodium Potassium Chloride Carbon Dioxide Anion Gap BUN Creatinine Creat Clearance w eGFR Random Glucose Lactic Acid Calcium Total Bilirubin AST ALT Alkaline Phosphatase Total Protein Albumin Lipase Urine Color Ltyellow Urine Appearance Clear Urine pH 7.0 Ur Specific [place] 1.013 Urine Protein Negative Urine Glucose (UA) Negative Urine Ketones Negative Urine Blood Negative Urine Nitrite Negative Urine Bilirubin Negative Urine Urobilinogen Negative Ur Leukocyte Esterase Negative Influenza A (Rapid) Negative Influenza B (Rapid) Negative Group A Strep Rapid Negative 11/16/18 11/16/18 11/16/18 19:00 19:00 19:00 WBC 14.1 H RBC 4.66 Hgb 14.5 Hct 41.9 MCV 89.9 MCH 31.1 MCHC 34.6 RDW 13.1 Plt Count 275 MPV 8.9 D Absolute Neuts (auto) 11.7 H Neutrophils % 82.7 D Neutrophils % (Manual) 82.0 Band Neutrophils % 3.0 Lymphocytes % 10.1 D Lymphocytes % (Manual) 9.0 Monocytes % 6.4 Monocytes % (Manual) 5 Eosinophils % 0.5 D Eosinophils % (Manual) 1.0 Basophils % 0.3 Basophils % (Manual) 0.0 Nucleated RBC % 0 Platelet Estimate Adequate Sodium Potassium Chloride Carbon Dioxide Anion Gap BUN Creatinine Creat Clearance w eGFR Random Glucose Lactic Acid 0.8 Calcium Total Bilirubin AST ALT Alkaline Phosphatase Total Protein Albumin Lipase 87 Urine Color Urine Appearance Urine pH Ur Specific [place] Urine Protein Urine Glucose (UA) Urine Ketones Urine Blood Urine Nitrite Urine Bilirubin Urine Urobilinogen Ur Leukocyte Esterase Influenza A (Rapid) Influenza B (Rapid) Group A Strep Rapid 11/16/18 20:26 WBC RBC Hgb Hct MCV MCH MCHC RDW Plt Count MPV Absolute Neuts (auto) Neutrophils % Neutrophils % (Manual) Band Neutrophils % Lymphocytes % Lymphocytes % (Manual) Monocytes % Monocytes % (Manual) Eosinophils % Eosinophils % (Manual) Basophils % Basophils % (Manual) Nucleated RBC % Platelet Estimate Sodium 136 Potassium 3.6 Chloride 103 Carbon Dioxide 24 Anion Gap 9 BUN 11 Creatinine 0.8 Creat Clearance w eGFR > 60 Random Glucose 104 Lactic Acid Calcium 8.4 L Total Bilirubin 0.8 AST 20 ALT 41 Alkaline Phosphatase 70 Total Protein 7.7 Albumin 4.1 Lipase Urine Color Urine Appearance Urine pH Ur Specific [place] Urine Protein Urine Glucose (UA) Urine Ketones Urine Blood Urine Nitrite Urine Bilirubin Urine Urobilinogen Ur Leukocyte Esterase Influenza A (Rapid) Influenza B (Rapid) Group A Strep Rapid CT of abdomen reviewed ASSESSMENT/PLAN: #Sepsis secondary to diverticulitis, normal lactate -admit to med/surg -IV fluid hydration -blood cultures x2 -npo for now -bowel rest -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 - New Patient This patient is new to me today: Yes Date on this admission: 11/17/18 - Critical Care Critical Care patient: No
[2018-11-17] MEDS: SODIUM CHLORIDE 1,000 ML IV SCH ×2 (03:11→08:52)
[2018-11-17 04:08] VITALS: BMI 36.8
[2018-11-17 06:13] LABS: HEMATOCRIT 36.5 % (35.4-49); HEMOGLOBIN 12.6 GM/dL (11.7-16.9); MCHC 34.6 g/dl (32.0-35.9); MEAN CELL VOLUME 89.6 fl (80-96); MEAN PLT VOLUME 8.6 fl (7.5-11.1); PLATELET COUNT 229 K/MM3 (134-434); RBC 4.07 M/mm3 (4.00-5.60); RDW 13.3 % (11.9-15.9); WHITE BLOOD COUNT 10.6 K/mm3 (4.0-10.0)
[2018-11-17 06:48] LABS: ANION GAP 6 MMOL/L (8-16); BLOOD UREA NITROGEN 9 mg/dL (7-18); CALCIUM 7.5 mg/dL (8.5-10.1); CHLORIDE 108 mmol/L (98-107); CO2 25 mmol/L (21-32); CREATININE 0.7 mg/dL (0.55-1.3); GLUCOSE,RANDOM 93 mg/dL (74-106); POTASSIUM 3.7 mmol/L (3.5-5.1); SODIUM 139 mmol/L (136-145)
[2018-11-17] MEDS ORDERED: ACETAMINOPHEN 1000 MG/100 ML VIAL (NON FORMULARY) IVPB ONE (08:14)
[2018-11-17] MEDS ORDERED: cefTRIAXone SODIUM 1 GM VIAL ONE (08:41)
[2018-11-17] MEDS ORDERED: DEXTROSE 5%-WATER - 50 ML IVPB ONE (08:41)
[2018-11-17] MEDS: LORATADINE 10 MG TABLET PO SCH (09:10)
[2018-11-17] MEDS: CEFTRIAXONE 1 GM in DEXTROSE 5%-WATER - 50 ML IVPB SCH (09:10)
[2018-11-17] MEDS: HEPARIN NA (PORCINE) 5,000 UNITS/ML 1ML VIAL SQ SCH ×2 (09:11→22:20)
[2018-11-17] MEDS ORDERED: MONTELUKAST NA 10 MG TABLET PO SCH ×2 (10:00→22:00)
--- NOTE | 2018-11-17 12:29 | CON.GI ---
Consult Consult Specialty:: GI Referred by:: Medicine Reason for Consultation:: acute diverticulitis - History of Present Illness Chief Complaint: LLQ pain History of Present Illness: 28M with h/o appendectomy 2011 for appendicitis w abscess s/p drainage presenting for LLQ pain of two days duration, worsening, with associated fever/ chills x1 day. Has never had anything like this before. No rectal bleeding. + FHx CRC in maternal aunt in 60s. Labs notable for elevated WBC count, CT A/P with acute distal descending colon diverticulitis. Patient has received IV antibiotics and reports feeling much better. Pain is down to 5 from 9-10 yesterday. Not taking anything except acetaminophen for pain. - History Source History Provided By: Patient Limitations to Obtaining History: No Limitations - Past Medical History Psych: Yes: Anxiety - Past Surgical History Past Surgical History: Yes: Appendectomy - Alcohol/Substance Use Hx Alcohol Use: No - Smoking History Smoking history: Never smoked Have you smoked in the past 12 months: No Aproximately how many cigarettes per day: 1 Home Medications - Allergies Allergies/Adverse Reactions: Allergies Allergy/AdvReac Type Severity Reaction Status Date / Time zhang flavor Allergy Verified 11/16/18 17:52 hazelnut Allergy Verified 11/16/18 17:52 cats Allergy Uncoded 11/16/18 17:52 dust Allergy Uncoded 11/16/18 17:52 - Home Medications Home Medications: Ambulatory Orders Cetirizine HCl [Zyrtec -] 10 mg PO DAILY 08/31/17 Montelukast Sodium [Singulair] 50 mg PO DAILY 08/31/17 Duloxetine HCl [Cymbalta] 30 mg PO HS 11/16/18 Review of Systems - Review of Systems Constitutional: reports: Chills, Fever Neck: reports: No Symptoms Cardiovascular: reports: No Symptoms Respiratory: reports: No Symptoms Gastrointestinal: reports: Abdominal Pain Musculoskeletal: reports: No Symptoms Integumentary: reports: No Symptoms Neurological: reports: No Symptoms Endocrine: reports: No Symptoms Psychiatric: reports: No Symptoms Pain Intensity: 5 Physical Exam-GI Vital Signs: Vital Signs Temperature 99.8 F H 11/17/18 07:29 Pulse Rate 100 H 11/17/18 07:29 Respiratory Rate 20 11/17/18 07:29 Blood Pressure 136/66 11/17/18 07:29 O2 Sat by Pulse Oximetry (%) 99 11/17/18 09:00 Constitutional: Yes: Well Nourished, No Distress Eyes: Yes: WNL Cardiovascular: Yes: Regular Rate and Rhythm Respiratory: Yes: CTA Bilaterally ...Palpate: Yes: Soft, Tenderness (LLQ), Other (+ guarding, no rebound) ...Rectal Exam: Yes: Deferred Edema: No Neurological: Yes: WNL, Alert, Oriented Psychiatric: Yes: Alert, Oriented Labs: CBC, BMP 11/17/18 05:20 11/17/18 05:20 Imaging - Results Cat Scan: Report Reviewed Assessment/Plan Acute left sided diverticulitis in a young man - unusual for age. Seems to be improving quickly on antibiotics. Can have clear liquids Continue antibiotics Would perform colonoscopy after resolution of diverticulitis, in 6-8 weeks, to rule out occult lesion
--- NOTE | 2018-11-17 14:24 | PN ---
Teaching Attending Note Name of Resident: Alexx Charles ATTENDING PHYSICIAN STATEMENT I saw and evaluated the patient. I reviewed the resident's note and discussed the case with the resident. I agree with the resident's findings and plan as documented. SUBJECTIVE:pain improved. no nausea or vomiting. denies CP, SOB, fever, chills OBJECTIVE: Last Vital Signs Temp Pulse Resp BP Pulse Ox 99.8 F H 100 H 20 136/66 99 11/17/18 07:29 11/17/18 07:29 11/17/18 07:29 11/17/18 07:29 11/17/18 09:00 General NAD CV S1 S2 RRR no murmur/rub/gallop Lungs CTA B/L no wheezing/rales/rhonchi abdomen soft +LLQ tenderness no rebound or guarding +BS extremities no pedal edema ASSESSMENT AND PLAN: 28yo M with PMH allergy presenting with abdominal pain and constipation and found to be septic due to acute diverticulitis 1. Sepsis due to acute diverticulitis- Tm 101.5 with tachycardia with leukocytosis. clinically improving. cont NPO, IVF, ceftriaxone and Flagyl day 2. can advance diet as pain improves. will need colonoscopy in 6-8 weeks 2. allergies- cont home regimen 3. DVT ppx- hep sq 4. anticipate discharge in next 24-48H
[2018-11-17] MEDS ORDERED: SODIUM CHLORIDE 1,000 ML IV SCH (14:34)
--- NOTE | 2018-11-17 14:36 | PN ---
Physical Exam: SUBJECTIVE: Patient seen and examined at bedside. Pain significantly improved. No other complaints. OBJECTIVE: Vital Signs Period Temp Pulse Resp BP Sys/Sepulveda Pulse Ox Last 24 Hr 97.6 F-101.5 F 70-113 16-20 98-137/64-83 97-99 GENERAL: A&Ox3, NAD HEENT: NC/AT, PERRLA, EOMI, MMM NECK: Trachea midline, full range of motion, supple. LUNGS: CTA b/l HEART: RRR no m/r/g ABDOMEN: +bs, soft, tenderness elicited most prominently in LLQ EXTREMITIES: 2+ pulses, warm, well-perfused, no edema. 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 SKIN: Warm, dry, normal turgor, no rashes or lesions noted Laboratory Results - last 24 hr 11/16/18 11/16/18 11/16/18 18:30 18:30 18:30 WBC RBC Hgb Hct MCV MCH MCHC RDW Plt Count MPV Absolute Neuts (auto) Neutrophils % Neutrophils % (Manual) Band Neutrophils % Lymphocytes % Lymphocytes % (Manual) Monocytes % Monocytes % (Manual) Eosinophils % Eosinophils % (Manual) Basophils % Basophils % (Manual) Nucleated RBC % Platelet Estimate Sodium Potassium Chloride Carbon Dioxide Anion Gap BUN Creatinine Creat Clearance w eGFR Random Glucose Lactic Acid Calcium Total Bilirubin AST ALT Alkaline Phosphatase Total Protein Albumin Lipase Urine Color Ltyellow Urine Appearance Clear Urine pH 7.0 Ur Specific Orient 1.013 Urine Protein Negative Urine Glucose (UA) Negative Urine Ketones Negative Urine Blood Negative Urine Nitrite Negative Urine Bilirubin Negative Urine Urobilinogen Negative Ur Leukocyte Esterase Negative Influenza A (Rapid) Negative Influenza B (Rapid) Negative Group A Strep Rapid Negative 11/16/18 11/16/18 11/16/18 19:00 19:00 19:00 WBC 14.1 H RBC 4.66 Hgb 14.5 Hct 41.9 MCV 89.9 MCH 31.1 MCHC 34.6 RDW 13.1 Plt Count 275 MPV 8.9 D Absolute Neuts (auto) 11.7 H Neutrophils % 82.7 D Neutrophils % (Manual) 82.0 Band Neutrophils % 3.0 Lymphocytes % 10.1 D Lymphocytes % (Manual) 9.0 Monocytes % 6.4 Monocytes % (Manual) 5 Eosinophils % 0.5 D Eosinophils % (Manual) 1.0 Basophils % 0.3 Basophils % (Manual) 0.0 Nucleated RBC % 0 Platelet Estimate Adequate Sodium Potassium Chloride Carbon Dioxide Anion Gap BUN Creatinine Creat Clearance w eGFR Random Glucose Lactic Acid 0.8 Calcium Total Bilirubin AST ALT Alkaline Phosphatase Total Protein Albumin Lipase 87 Urine Color Urine Appearance Urine pH Ur Specific Orient Urine Protein Urine Glucose (UA) Urine Ketones Urine Blood Urine Nitrite Urine Bilirubin Urine Urobilinogen Ur Leukocyte Esterase Influenza A (Rapid) Influenza B (Rapid) Group A Strep Rapid 11/16/18 11/17/18 11/17/18 20:26 05:20 05:20 WBC 10.6 H RBC 4.07 Hgb 12.6 Hct 36.5 MCV 89.6 MCH 31.0 MCHC 34.6 RDW 13.3 Plt Count 229 MPV 8.6 Absolute Neuts (auto) Neutrophils % Neutrophils % (Manual) Band Neutrophils % Lymphocytes % Lymphocytes % (Manual) Monocytes % Monocytes % (Manual) Eosinophils % Eosinophils % (Manual) Basophils % Basophils % (Manual) Nucleated RBC % Platelet Estimate Sodium 136 139 Potassium 3.6 3.7 Chloride 103 108 H Carbon Dioxide 24 25 Anion Gap 9 6 L BUN 11 9 Creatinine 0.8 0.7 Creat Clearance w eGFR > 60 > 60 Random Glucose 104 93 Lactic Acid Calcium 8.4 L 7.5 L Total Bilirubin 0.8 AST 20 ALT 41 Alkaline Phosphatase 70 Total Protein 7.7 Albumin 4.1 Lipase Urine Color Urine Appearance Urine pH Ur Specific Orient Urine Protein Urine Glucose (UA) Urine Ketones Urine Blood Urine Nitrite Urine Bilirubin Urine Urobilinogen Ur Leukocyte Esterase Influenza A (Rapid) Influenza B (Rapid) Group A Strep Rapid Active Medications Generic Name Dose Route Start Last Admin Trade Name Freq PRN Reason Stop Dose Admin Duloxetine HCl 30 mg 11/17/18 22:00 Cymbalta - PO HS MIAN Heparin Sodium (Porcine) 5,000 unit 11/17/18 10:00 11/17/18 09:11 Heparin - SQ 5,000 unit BID MIAN Administration Sodium Chloride 1,000 mls @ 75 mls/hr 11/17/18 01:30 11/17/18 08:52 Normal Saline - IV 75 mls/hr ASDIR MIAN Administration Ceftriaxone Sodium 1 gm/ 50 mls @ 100 mls/hr 11/17/18 10:00 11/17/18 09:10 Dextrose IVPB 100 mls/hr DAILY MIAN Administration Metronidazole 500 mg in 100 mls @ 100 mls/hr 11/17/18 02:00 11/17/18 11:07 Flagyl 500mg Premixed Ivpb - IVPB 100 mls/hr Q8H-IV MIAN Administration Loratadine 10 mg 11/17/18 10:00 11/17/18 09:10 Claritin - PO Not Given DAILY MIAN Montelukast Sodium 10 mg 11/17/18 22:00 Singulair - PO HS MIAN Morphine Sulfate 2 mg 11/17/18 01:28 Morphine Sulfate IVPUSH Q4H PRN PAIN LEVEL 6-10 Ondansetron HCl 4 mg 11/17/18 01:33 Zofran Injection IVPUSH Q6H PRN NAUSEA ASSESSMENT/PLAN: 28 y/o M w/ PMHx intraabdominal abscess admitted for acute diverticulitis #acute diverticulitis -CT showing diverticulitis w/o abscess formation -GI following -improved w/ bowel rest, IVF, ABx -advanced to clear liquids per GI and tolerating well -cont Flagyl/Ceftriaxone -reduced IVF rate -adv diet as tolerated -outpt colonoscopy in 6-8 weeks #allergies -cont home meds #FEN -NS @ 42 cc/hr -monitor and correct electrolytes -clear liquid #PPx -DVT: heparin subq -GI: not indicated #code -full #dispo -cont to monitor on med/surg Visit type - Emergency Visit Emergency Visit: No - New Patient This patient is new to me today: Yes Date on this admission: 11/17/18 - Critical Care Critical Care patient: No
[2018-11-17] MEDS ORDERED: ACETAMINOPHEN 325 MG TABLET (FP) PO PRN (17:21)
[2018-11-17] MEDS ORDERED: DULoxetine HCL 30 MG CAPSULE.DR (FP) PO SCH (22:00)
[2018-11-18 08:40] LABS: BASO % 0.3 % (0-2.0); EOS % 0.9 % (0-4.5); HEMATOCRIT 36.3 % (35.4-49); HEMOGLOBIN 12.3 GM/dL (11.7-16.9); LYMPH % 19.8 % (8-40); MCH 30.5 pg (25.7-33.7); MCHC 33.9 g/dl (32.0-35.9); MONO % 10.9 % (3.8-10.2); NEUT % 68.1 % (42.8-82.8); PLATELET COUNT 238 K/MM3 (134-434); RBC 4.03 M/mm3 (4.00-5.60); RDW 13.5 % (11.9-15.9); WHITE BLOOD COUNT 7.6 K/mm3 (4.0-10.0)
[2018-11-18] MEDS ORDERED: DEXTROSE 5%-WATER - 50 ML IVPB ONE (09:10)
[2018-11-18] MEDS ORDERED: cefTRIAXone SODIUM 1 GM VIAL ONE (09:10)
[2018-11-18 09:11] LABS: ANION GAP 6 MMOL/L (8-16); BLOOD UREA NITROGEN 5 mg/dL (7-18); CALCIUM 7.9 mg/dL (8.5-10.1); CHLORIDE 108 mmol/L (98-107); CO2 25 mmol/L (21-32); CREATININE 0.7 mg/dL (0.55-1.3); GLUCOSE,RANDOM 91 mg/dL (74-106); MAGNESIUM 2.1 mg/dL (1.8-2.4); PHOSPHOROUS 2.6 mg/dL (2.5-4.9); POTASSIUM 3.7 mmol/L (3.5-5.1); SODIUM 139 mmol/L (136-145)
[2018-11-18] MEDS: LORATADINE 10 MG TABLET PO SCH (09:13)
[2018-11-18] MEDS: HEPARIN NA (PORCINE) 5,000 UNITS/ML 1ML VIAL SQ SCH (09:14)
[2018-11-18] MEDS: CEFTRIAXONE 1 GM in DEXTROSE 5%-WATER - 50 ML IVPB SCH (09:14)
[2018-11-18] MEDS ORDERED: LACTOBACILLUS ACIDOPHILUS 1 TABLET PO SCH (10:00)
[2018-11-18 11:23] VITALS: BP 123/66; PULSE 68; TEMP 98.3
--- NOTE | 2018-11-18 12:53 | DS ---
Physical Exam: SUBJECTIVE: Patient seen and examined at bedside. Pain significantly improved. Tolerated advancement to full diet. No other complaints. OBJECTIVE: Vital Signs Period Temp Pulse Resp BP Sys/Sepulveda Pulse Ox Last 24 Hr 98.1 F-99.7 F 68-96 20-20 123-127/62-82 98-98 PHYSICAL EXAM GENERAL: A&Ox3, NAD HEENT: NC/AT, PERRLA, EOMI, MMM NECK: Trachea midline, full range of motion, supple. LUNGS: CTA b/l HEART: RRR no m/r/g ABDOMEN: +bs, soft, tenderness only on deep palpation of LLQ EXTREMITIES: 2+ pulses, warm, well-perfused, no edema. 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 SKIN: Warm, dry, normal turgor, no rashes or lesions noted LABS Laboratory Results - last 24 hr 11/18/18 11/18/18 07:30 07:30 WBC 7.6 RBC 4.03 Hgb 12.3 Hct 36.3 MCV 90.0 MCH 30.5 MCHC 33.9 RDW 13.5 Plt Count 238 MPV 9.0 Absolute Neuts (auto) 5.2 Neutrophils % 68.1 Lymphocytes % 19.8 D Monocytes % 10.9 H Eosinophils % 0.9 Basophils % 0.3 Nucleated RBC % 0 Sodium 139 Potassium 3.7 Chloride 108 H Carbon Dioxide 25 Anion Gap 6 L BUN 5 L Creatinine 0.7 Creat Clearance w eGFR > 60 Random Glucose 91 Calcium 7.9 L Phosphorus 2.6 Magnesium 2.1 HOSPITAL COURSE: Date of Admission:11/17/18 Patient is a 28 y/o M p/w 3 day h/o severe lower abd pain, febrile and tachycardic on presentation. CT abd revealed acute diverticulitis w/o abscess formation. GI was consulted and recommended 6-8 week outpt f/u for colonoscopy. Patient was treated with bowel rest, IV antibiotics, IV fluids, and quickly improved. Was gradually advanced to liquid and then full diet and tolerated these well. He was discharged on a course of oral antibiotics, probiotics, and referred for oupatient followup with primary care and GI as above. Date of Discharge: 11/18/18 Minutes to complete discharge: 40 Discharge Summary Reason For Visit: FEVER, ACOTE DIVERTICLITIS OF INTESTINE Current Active Problems Abdominal pain (Acute) Acute diverticulitis (Acute) Bandemia (Acute) Fever (Acute) Condition: Stable - Instructions Diet, Activity, Other Instructions: You were hospitalized for acute diverticulitis, an infection of a pouch in the wall of your colon. You were treated with bowel rest, intravenous fluid, antibiotics, and slow reintroduction of regular diet, and you improved. You will need to complete a course of oral antibiotics as an outpatient. These have been sent to your pharmacy. You have also been provided a prescription for a one month course of probiotics to protect your gut. Please take these medications exactly as directed to completion. Otherwise please resume all of your home medications. You will require outpatient followup with gastroenterology for a colonoscopy in 6-8 weeks. This is to determine whether there is any ongoing inflammation or other abnormalities in your colon and is necessary to rule out any potentially dangerous causes of your diverticulitis. You have been referred to Dr. Russell, who saw you in the hospital. Please make and keep an appointment with her in 6-8 weeks from discharge. Please also follow up with your primary care provider within 2 weeks of discharge. If you experience any new or worsening abdominal pain, vomiting, fever, chills, blood in your vomit or stool, or any other new or concerning symptoms, please return to the Emergency Department. Referrals: Isis Russell MD [Staff Physician] - 01/12/19 Pepe Cartagena [Non Staff, Medical] - 2 Weeks Disposition: HOME - Home Medications Comprehensive Discharge Medication List: Ambulatory Orders Cetirizine HCl [Zyrtec -] 10 mg PO DAILY 08/31/17 Montelukast Sodium [Singulair] 50 mg PO DAILY 08/31/17 Duloxetine HCl [Cymbalta] 30 mg PO HS 11/16/18 Lactobacillus Acidophilus [Bacid -] 1 tab PO DAILY #30 tab 11/18/18 Metronidazole 500 mg PO Q8H #21 tablet 11/18/18 levoFLOXacin [Levaquin] 750 mg PO DAILY #7 tab 11/18/18 This patient is new to me today: No Emergency Visit: No Critical Care patient: No - Discharge Referral Referred to [facility] No
--- NOTE | 2018-11-18 15:11 | PN ---
Teaching Attending Note Name of Resident: Alexx Charles ATTENDING PHYSICIAN STATEMENT I saw and evaluated the patient. I reviewed the resident's note and discussed the case with the resident. I agree with the resident's findings and plan as documented. SUBJECTIVE: Feeling much better. Abdominal pain resolved. No further fever or diarrhea. No nausea/vomiting. OBJECTIVE: Afebrile, Hemodynamically Stable. Last Vital Signs Temp Pulse Resp BP Pulse Ox 98.3 F 68 20 123/66 98 11/18/18 10:00 11/18/18 10:00 11/18/18 10:00 11/18/18 10:11/18/18 09:00 HEENT - Atraumatic, Normocephalic Heart - S1, S2, RRR Lungs - clear to auscultation. Abdomen - Soft. Mild LLQ tenderness on deep palpation. Extremities - No edema, no calf tenderness Laboratory Results - last 24 hr 11/18/18 11/18/18 07:30 07:30 WBC 7.6 RBC 4.03 Hgb 12.3 Hct 36.3 MCV 90.0 MCH 30.5 MCHC 33.9 RDW 13.5 Plt Count 238 MPV 9.0 Absolute Neuts (auto) 5.2 Neutrophils % 68.1 Lymphocytes % 19.8 D Monocytes % 10.9 H Eosinophils % 0.9 Basophils % 0.3 Nucleated RBC % 0 Sodium 139 Potassium 3.7 Chloride 108 H Carbon Dioxide 25 Anion Gap 6 L BUN 5 L Creatinine 0.7 Creat Clearance w eGFR > 60 Random Glucose 91 Calcium 7.9 L Phosphorus 2.6 Magnesium 2.1 Discharge Medications Medication Instructions Recorded Cetirizine HCl [Zyrtec -] 10 mg PO DAILY 08/31/17 Montelukast Sodium [Singulair] 50 mg PO DAILY 08/31/17 Duloxetine HCl [Cymbalta] 30 mg PO HS 11/16/18 Lactobacillus Acidophilus [Bacid -] 1 tab PO DAILY #30 tab 11/18/18 Metronidazole 500 mg PO Q8H #21 tablet 11/18/18 levoFLOXacin [Levaquin] 750 mg PO DAILY #7 tab 11/18/18 ASSESSMENT AND PLAN: 28 year old male with history of Allergies, presented with abdominal pain, fever , found to have Sepsis secondary to Acute Diverticulitis. 1. Sepsis due to Acute Diverticulitis - resolved with symptomatic improvement with IV hydration adn IV Abx therapy. Now afebrile, with resolution of tachycardia and leukocytosis. Tolerating oral intake with no further symptoms. For discharge on oral Abx Flagyl/Levofloxacin. Out-patient GI follow up for colonoscopy in 6-8 weeks. 2. History of Allergies - Continue Cetirizine, Montelukast Medically optimized for discharge with significant improvement in his symptoms and resolution of sepsis. To continue antibiotic course for an additional 7 days on discharge with out-patient GI follow up.
--- NOTE | 2018-11-22 18:11 | EKG ---
Test Reason : Blood Pressure : / mmHG Vent. Rate : 088 BPM Atrial Rate : 088 BPM P-R Int : 140 ms QRS Dur : 086 ms QT Int : 376 ms P-R-T Axes : 039 028 017 degrees QTc Int : 454 ms NORMAL SINUS RHYTHM NORMAL ECG WHEN COMPARED WITH ECG OF 31-AUG-2017 17:47, NO SIGNIFICANT CHANGE WAS FOUND Confirmed by MD PAUL, PETER ([id number]) on 11/22/2018 6:10:49 PM Referred By: Confirmed By:PETER MILLER MD
== END 2018-11-18 14:35 | disposition home or self-care (01) | DRG 872 ==
LOC: JER 17:34 → JERBED 11-17 00:09 → OBSVTOIN 11-17 01:28 → J8W 11-17 04:01
PROVIDERS: ADMIT Internal Medicine
DX: A41.9 Sepsis, unspecified organism (principal); K57.32 Diverticulitis of large intestine without perforation or abscess without bleeding; K59.00 Constipation, unspecified
CPT/HCPCS: 36415; 71045-TC-FY; 74177-TC; 80048; 80053; 81003; 83605; 83690; 83735; 84100; 85025; 85027; 87040; 87070; 87086; 87804; 87880; 93005; 93010; 99284-25; G0378; J0131; J1644; J7030